=== PATIENT | female | born 1995 | race Caucasian/White ===

== ENCOUNTER → 2022-02-10 08:03 | Outpatient (CLI) | payer BC, SELFPAY ==
--- NOTE | ~2022-02-10 | MMUS_ITS ---
EXAMINATION: MM diagnostic april BI w justin, US breast RT complete HISTORY: Palpable right breast abnormality TECHNIQUE: Additional 3-D tomosynthesis images of the breasts were performed and synthetic 2-D images were generated. CAD analysis was submitted and interpreted. High resolution complete right breast ul trasound was performed. COMPARISON: No prior studies for comparison. BREAST PARENCHYMAL COMPOSITION: The breasts are extremely dense, which lowers the sensitivity of mamm ography. FINDINGS: MAMMOGRAPHIC FINDINGS: In the area of mammographic concern in the upper outer quadrant of the right breast there is an irreg ular shaped 2 cm right breast mass. There are no suspicious calcifications in the right breast. There is no mammographic evidence for malignancy in the left breast. ULTRASOUND: Complete US of all 4 quadrants of the right breast and retroareolar region was reviewed. There is an irregular shaped hypoechoic right mass at 10-11:00 position in the area of palpable concern measuring 3.4 x 1.7 x 2.7 cm. There is mixed posterior attenuation, irregular margins and marginal vascularity . There is a small adjacent cyst. At T10-11 o'clock there is a 6 mm cyst. At 12:00, 5 cm from the nip ple there is a 4 mm cyst. At 12:00, 5 cm from the nipple there is an oval circumscribed hypoechoic ma ss with parallel orientation, no posterior features and no significant internal vascularity measuring 1.3 x 0.8 x 1.3 cm, likely benign. At 3:00, 3 cm from the nipple there is a 6 mm oval hypoechoic mas s with internal septations, likely a cluster of microcysts measuring up to 7 mm. A 5:00, 4 cm from the nipple there is a cluster of microcysts measuring 5 mm. At 9:00, 4 cm from the nipple there is a 6 mm cyst. IMPRESSION: 1. Complex hypoechoic 3.4 cm right breast mass corresponding to mammographic and palpable abnormality , located at T10-11:00 position, 9 cm from the nipple. Remainder of the masses identified by ultrasou nd are likely benign and short-term ultrasound in 6 months recommended to assess stability of these m asses. 2. Ultrasound-guided right breast biopsy recommended. BI-RADS category 4, suspicious findings. Reviewed, dictated and finalized at location A. IMPRESSION: 1. Complex hypoechoic 3.4 cm right breast mass corresponding to mammographic an d palpable abnormality, located at T10-11:00 position, 9 cm from the nipple. Re mainder of the masses identified by ultrasound are likely benign and short-term ultrasound in 6 months recommended to assess stability of these masses. 2. Ultrasound-guided right breast biopsy recommended. BI-RADS category 4, suspicious findings.
== END ==
PROVIDERS: PCP Nurse Practitioner; Visit Provider Nurse Practitioner
DX: N63.10 Unspecified lump in the right breast, unspecified quadrant (principal); R92.8 Other abnormal and inconclusive findings on diagnostic imaging of breast
CPT/HCPCS: 76641; 77062; 77066; G0279